=== PATIENT | female | born 1955 | race African-American/Black ===

== ENCOUNTER 2016-06-05 12:41 | Emergency (ER) | payer BC ==
[2016-06-05] MEDS ORDERED: CYCLOBENZAPRINE 10 MG TAB ONE (13:46)
[2016-06-05] MEDS ORDERED: TRAMADOL 50 MG TAB ONE (13:46)
== END 2016-06-05 14:21 | disposition home or self-care (01) ==
LOC: FASTR 12:41
DX: M79.652 Pain in left thigh (principal); M25.562 Pain in left knee; V49.50XA Passenger injured in collision with unspecified motor vehicles in traffic accident, initial encounter